=== PATIENT | female | born 1975 | race Caucasian/White ===

== ENCOUNTER → 2023-04-26 06:46 | Outpatient (REF) | payer BC, SELFPAY | LOC: HWWDC 06:46 | PROVIDERS: ATTENDING PHYSICIAN Obstetrics & Gynecology; FAMILY PHYSICIAN Family Medicine | DX: Z12.31 Encounter for screening mammogram for malignant neoplasm of breast (principal) | CPT/HCPCS: 77063; 77067 ==

== ENCOUNTER → 2023-11-04 17:14 | Outpatient (REF) | payer BC, SELFPAY | LOC: RAD 17:14 | PROVIDERS: ATTENDING PHYSICIAN Obstetrics & Gynecology; FAMILY PHYSICIAN Family Medicine | DX: R10.2 Pelvic and perineal pain (principal); D25.9 Leiomyoma of uterus, unspecified | CPT/HCPCS: 76830; 76856 ==

== ENCOUNTER → 2024-07-12 08:34 | Outpatient (REF) | payer BC, SELFPAY | LOC: HWWDC 08:34 | PROVIDERS: ATTENDING PHYSICIAN Obstetrics & Gynecology; FAMILY PHYSICIAN Family Medicine | DX: Z12.31 Encounter for screening mammogram for malignant neoplasm of breast (principal) | CPT/HCPCS: 77063; 77067 ==